=== PATIENT | female | born 2000 | race Two or more races ===

== ENCOUNTER 2024-12-17 16:47 | Emergency (ER) | payer MEDICAID, SELFPAY ==
[2024-12-17 16:48] VITALS: BMI 34.0
[2024-12-17 17:35] VITALS: BP 116/75; PULSE 75; RESP 16; TEMP 36.9; O2SAT 98
--- NOTE | 2024-12-17 17:47 | XR_ITS ---
Examination: Complete OB ultrasound, less than 14 weeks, transabdominal Date and time of exam: December 17, 2024 1046 hrs. Indications: Pelvic cramping this week Technique: Obstetrical ultrasound images less than 14 weeks performed via transabdominal imaging Findings: A normal shaped single intrauterine gestation is present in the uterus. pole 5.6 cm corresponds to 12 weeks 1 day gestational age Cardiac motion 167 BPM Ultrasonographic survey of visible and placental structures unremarkable. Amniotic fluid volume appears appropriate for this estimated gestational age. Right ovary 3.1 cm arterial flow. Left ovary obscured by bowel gas Impression: Viable intrauterine gestation 12 weeks 1 day
--- NOTE | 2024-12-17 17:49 | PD.EDRME ---
Rapid Medical Screening Exam RME Arrival date/time: 12/17/24 16:47 This is a 24-year-old female who presents to the emergency department with complaints of possible vaginal spotting, mild dysuria. She is 11 weeks of gestation. I have greeted and performed a focused initial assessment of this patient. Initial appropriate labs ordered at this time. A comprehensive ED assessment and evaluation of the patient and analysis of all test and completion of medical decision making process will be conducted by additional ED provider. Chief Complaint: Vaginal Bleeding Time Seen by Provider: 12/17/24 17:31 Vital signs: Vital Signs Temperature 98.5 F 12/17/24 17:35 Pulse Rate 75 12/17/24 17:35 Respiratory Rate 16 12/17/24 17:35 Blood Pressure 116/75 12/17/24 17:35 Pulse Oximetry (%) 98 12/17/24 17:35 Oxygen Delivery Method Room Air 12/17/24 17:35
[2024-12-17 18:29] LABS: Basophils # (Auto) 0.1 Thou/mm3 (0.0-0.2); Basophils % (Auto) 1 % (0-2.5); Eosinophils # (Auto) 0.4 Thou/mm3 (0.0-0.5); Eosinophils % (Auto) 3 % (0-10); Hematocrit 39.5 % (36.0-46.0); Hemoglobin 13.9 g/dL (12.0-16.0); Immature Granulocytes % (Auto) 0 % (0-0); Immature Granulocytes Auto 0.03 Thou/mm3 (0.00-0.00); Lymphocytes # (Auto) 3.8 Thou/mm3 (1.0-4.8); Lymphocytes % (Auto) 31 % (10-50); Mean Corpuscular HGB Conc 35.2 g/dl (31.0-37.0); Mean Corpuscular Hemoglobin 28.7 pg (25.0-35.0); Mean Corpuscular Volume 81 fL (80-100); Monocytes # (Auto) 0.5 Thou/mm3 (0.0-0.8); Monocytes % (Auto) 4 % (0-12); Neutrophils # (Auto) 7.3 Thou/mm3 (1.8-7.7); Neutrophils % (Auto) 60 % (37-80); Nucleated Red Blood Cell % 0 /100 WBC (0); Platelet Count 279 Thou/mm3 (140-440); RDW Standard Deviation 37.2 fL (36.4-46.3); Red Blood Count 4.85 Miln/mm3 (4.00-5.20); White Blood Count 12.2 Thou/mm3 (3.6-11.0)
[2024-12-17 18:58] LABS: Collection Type, Urine Clean Catch
[2024-12-17 19:00] LABS: Albumin, Serum 4.4 gm/dL (3.5-5.0); Albumin/Globulin Ratio 1.5 (1.2-2.2); Alkaline Phosphatase 58 U/L (46-116); Anion Gap 10 (7-16); Aspartate Amino Transferase 13 U/L (0-34); BUN/Creatinine Ratio 8 Ratio (12-20); Bilirubin,Total 0.3 mg/dL (0.3-1.2); Blood Urea Nitrogen 5 mg/dL (9-23); Calcium 10.1 mg/dL (8.3-10.6); Calcium (Corrected) 10.1 mg/dL (8.5-10.1); Carbon Dioxide 22.3 mMol/L (20.0-31.0); Chloride 103 mMol/L (98-107); Creatinine (Component) 0.6 mg/dL (0.6-1.3); Globulin 2.9 gm/dL (2.3-3.5); Glucose 78 mg/dL (74-106); Osmolality,Calculated 266 (275-295); Potassium 4.1 mMol/L (3.4-5.1); Sodium 135 mMol/L (136-145); Total Protein 7.3 gm/dL (5.7-8.2); eGFR > 60 See Note
[2024-12-17 19:07] LABS: Bacteria,Urine Rare; Bilirubin,Urine Negative (Negative); Blood,Urine Trace (Negative); Clarity,Urine Turbid (Clear/Hazy); Color,Urine Yellow (Lt Yel-Yel); Glucose, Urine Negative (Negative); Ketones,Urine 1+ (Negative); Leukocyte Esterase,Urine Positive (Negative); Nitrite,Urine Negative (Negative); Protein,Urine Negative (Neg - Trace); RBC,Urine 19 /hpf (0-3); Specific Gravity,Urine 1.022 (1.001-1.035); Squamous Epithelial Cell,Urine 11 /hpf (0-5); Urobilinogen,Urine Negative mg/dL (0.0-1.0); WBC,Urine 75 /hpf (0-5)
[2024-12-17 19:17] LABS: Alanine Aminotransferase 12 U/L (10-49)
[2024-12-17 19:29] LABS: Beta HCG,Quantitative 56679 mIU/mL (<5.0)
--- NOTE | 2024-12-17 23:28 | PD.EDVAGBL ---
ED OB Contraction Preg RMI/HPI General Chief complaint: Vaginal Bleeding Stated complaint: vaginal bleed, abdominal pain, 11 weeks preg. Time Seen by Provider: 12/17/24 17:31 Source: patient Arrival date/time: 12/17/24 16:47 Mode of arrival: ambulatory Limitations: no limitations RME / HPI RME / HPI Narrative: 12/17/24 16:47 This is a 24-year-old female who presents to the emergency department with complaints of possible vaginal spotting, mild dysuria. She is 11 weeks of gestation. I have greeted and performed a focused initial assessment of this patient. Initial appropriate labs ordered at this time. A comprehensive ED assessment and evaluation of the patient and analysis of all test and completion of medical decision making process will be conducted by additional ED provider. DR CERVANTES MAIN ED EVALUATION: 24-year-old female at 11 weeks gestation who presents to the emergency department with concerns of possible vaginal spotting and mild dysuria. She was referred by her primary care provider for evaluation of vaginal bleeding. The patient reports noticing a small amount of spotting and experiencing a mild burning sensation while urinating. Related Data Previous Rx's ?Medication ?Instructions ?Recorded nitrofurantoin 100 mg PO BID #14 caps 12/18/24 monohydrate/macrocrystals 100 mg capsule (Macrobid) Allergies Allergy/AdvReac Type Severity Reaction Status Date / Time No Known Allergies Allergy Verified 06/07/21 12:25 Review of Systems Review of Systems Systems Reviewed: All systems reviewed, normal except as documented Past Medical History Past Medical History NEUROLOGIC: Negative Neurological Disorders CARDIAC: Negative Cardiac Disorders or Congestive Heart Failure RESPIRATORY: Negative Chronic Obstructive Pulmonary Disease (COPD) GASTROINTESTINAL: Negative Gastrointestinal Disorders, Hepatitis or Colorectal Cancer GENITOURINARY: Negative Genitourinary Disorders or Renal Disease REPRODUCTIVE: Negative Breast Cancer MUSCULOSKELETAL: Negative Musculoskeletal Disorders or Bone Cancer ENDOCRINE: Negative Endocrine Disorders, Diabetes Mellitus Type 1 or Diabetes Mellitus Type 2 HEMATOLOGIC: Negative Blood Disorders OTHER HISTORY: Negative Hospitalization, Autoimmune Disease, Down Syndrome, Developmental Delay, Shingles, Falls, Blood Transfusions, Blood Transfusion Reaction, Anesthesia Reactions, Organ Transplant, Chemotherapy, Radiation Therapy, Hyperbaric Therapy, MRSA, VRSA, Vancomycin-Resistant Enterococci, Human Immunodeficiency Virus (HIV), Chicken Pox, Measles, Mumps, Rubella ([place] Measles), Pertussis, Clostridium Difficile, Cancer, Breast Cancer, Cervical Cancer, Colorectal Cancer, Lung Cancer or Ovarian Cancer Family History FAMILY HISTORY: Negative Family Psychiatric Problems, Family Respiratory Disorders, Family Cardiac Disorders, Family Gastrointestinal Problems, Family Cancer, Family Surgery or Family Anesthesia Reaction Surgical History SURGICAL: Negative Section or Organ Transplant Social History SMOKING STATUS: Never smoker ED Exam Narrative Physical exam: GENERAL APPEARANCE: alert and oriented x 4, well-developed, well-nourished, no acute distress VITALS: All vitals were reviewed and the pulse ox is 97% on room air, which is normal according to my interpretation. HEENT: Normocephalic, atraumatic; pupils equal, round, reactive to light; EOMI; mucous membranes pink, moist; oropharynx clear NECK: Supple LUNGS: CTABL; no wheezes, no rales, no rhonchi HEART: Regular rate, regular rhythm; normal S1, S2; no murmurs ABDOMEN: non distended; normal BS; soft, no tenderness, no guarding, no rebound; no masses, no organomegaly, no hernia BACK: no CVA tenderness EXTREMITIES: atraumatic; no edema NEUROLOGIC: awake; alert and oriented x4; cranial nerves II-XII grossly intact; no focal sensory or motor deficits PSYCHIATRIC: appropriate mood and affect SKIN: warm, dry, normal color; no rashes General Limitations: Present no limitations Course Quality Measures none Orders Category Date Time Status US OB <= 14 weeks fetus Stat Exams 12/17/24 17:47 Completed ABO/RH Type Stat Lab 12/17/24 18:09 Completed Beta HCG,Quantitative Stat Lab 12/17/24 18:09 Completed CBC Stat Lab 12/17/24 18:09 Completed Comprehensive Metabolic Panel Stat Lab 12/17/24 18:09 Completed Urinalysis Stat Lab 12/17/24 18:35 Completed Urine Culture Stat Lab 12/17/24 18:35 Received Nitrofurantoin Macro [Macrobid] Med 12/18/24 00:35 Discontinued 100 mg PO X1 ONE Vital Signs Vital signs: Vital Signs Temperature 98.5 F 12/17/24 17:35 Pulse Rate 75 12/17/24 17:35 Respiratory Rate 16 12/17/24 17:35 Blood Pressure 116/75 12/17/24 17:35 Pulse Oximetry (%) 98 12/17/24 17:35 Oxygen Delivery Method Room Air 12/17/24 17:35 Vaginal Bleeding MDM Narrative MDM Narrative: UA is contaminated however patient is symptomatic of UTI. Will treat with macrobid. Recommend patient call for urine culture results. Scribe Attestation: Lyndsay Ansleyangelashley Herreraang, am scribing for and in the presence of Dr. Cervantes. Provider Notation: Although this document has been carefully reviewed, there may still be some phonetic and other typographical errors. These errors are purely grammatical due to imperfections in the software program and should not be construed in any way to compromise the substance of the patient's medical care during this visit. Patient data External records reviewed:: [facility] previous records Clinical information provided by:: patient Social determinants that could affect healthcare access:: none Patient has the following chronic illnesses:: see PMH How is presenting disease/condition affected by chronic disease/condition?: uneffected by Evaluation data The following diagnostics were reviewed and interpreted by me:: lab results and radiology exam(s) Lab and/or radiology exams considered but not ordered:: na Interpretation Summary: Examination: Complete OB ultrasound, less than 14 weeks, transabdominal Date and time of exam: December 17, 2024 1046 hrs. Indications: Pelvic cramping this week Technique: Obstetrical ultrasound images less than 14 weeks performed via transabdominal imaging Findings: A normal shaped single intrauterine gestation is present in the uterus. pole 5.6 cm corresponds to 12 weeks 1 day gestational age Cardiac motion 167 BPM Ultrasonographic survey of visible and placental structures unremarkable. Amniotic fluid volume appears appropriate for this estimated gestational age. Right ovary 3.1 cm arterial flow. Left ovary obscured by bowel gas Impression: Viable intrauterine gestation 12 weeks 1 day Dictated By: Misael Sheth MD Medications / Prescriptions Medications or Prescriptions considered but not ordered:: na Medication administrations:: Medication Administration History Discontinued Medications Nitrofurantoin Macrocrystals (Nitrofurantoin Macro 100 Mg Capsule) 100 mg PO X1 ONE Stop: 12/18/24 00:36 Last Admin: 12/18/24 00:52 Dose: 100 mg Documented By: as above Consultations Consultation(s) initiated? (list below): No Diagnosis Vaginal Bleeding Differential Diagnosis: threatened , menometrorrhagia, incomplete and vaginal bleeding Most likely diagnosis given after review of the tests above:: Spotting affecting , UTI (urinary tract infection) Admission Indicated Admission indicated?: not indicated Admission Request Was there a request for admission?: No Disposition Plan Disposition Plan: Discharge Discharge Attestation Discharge Attestation: The patient and all family members were given an opportunity to ask questions and understood the discharge instructions. Discharge instructions specifically effects, indications for sooner follow up or return to the emergency department, and the expected course of current diagnosis. Patient condition: Stable Discharge Plan Plan Patient Disposition: HOME (Self Care) Prescriptions/Referrals Prescriptions/Med Rec: New nitrofurantoin monohyd/m-cryst [Macrobid] 100 mg capsule 100 mg PO BID Qty: 14 0RF Rx Instructions: must administer with a meal/food Referrals: Willem Whipple MD [Primary Care Provider] - In 1 week Problem List Clinical Impression: Spotting affecting , UTI (urinary tract infection) Patient/Caregiver Discharge Instructions Education Materials: Bleeding During Early , ED CYSTITIS Female Adult Print Language: Indonesian Stand Alone Forms: Sera Award Info., Patient Portal Info Letter
[2024-12-18] MEDS: NITROFURANTOIN MACRO 100 MG CAPSULE PO (00:52)
[2024-12-18 00:53] VITALS: BP 111/78; PULSE 93; RESP 17; TEMP 36.6; O2SAT 97
== END 2024-12-18 01:32 | disposition home or self-care (01) ==
PROVIDERS: Nurse Practitioner Primary Care; Emergency Provider Emergency Medicine; PCP Family Medicine
DX: O26.851 Spotting complicating pregnancy, first trimester (principal); O23.41 Unspecified infection of urinary tract in pregnancy, first trimester; Z3A.11 11 weeks gestation of pregnancy
CPT/HCPCS: 36415; 76801; 80053; 81001; 84702; 85025; 86900; 86901; 87077; 87086; 87186; 99284; A9270

== ENCOUNTER 2024-12-19 13:39 | Outpatient (AMB) | payer MEDICAID, SELFPAY ==
[2024-12-19 13:56] VITALS: BP 106/72; PULSE 85; RESP 14; TEMP 36.7; O2SAT 98; BMI 34.0
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
== END 2024-12-19 14:38 | disposition home or self-care (01) ==
LOC: HODSOBC 13:39
PROVIDERS: PCP Family Medicine; Supervising Provider Obstetrics & Gynecology; Visit Provider Obstetrics & Gynecology
DX: O09.891 Supervision of other high risk pregnancies, first trimester (principal); O23.11 Infections of bladder in pregnancy, first trimester; Z3A.12 12 weeks gestation of pregnancy
CPT/HCPCS: 99214; G0463

== ENCOUNTER 2025-01-23 14:29 | Outpatient (AMB) | payer MEDICAID, SELFPAY ==
[2025-01-23 14:39] VITALS: BP 128/86; PULSE 101; RESP 18; TEMP 35.7; O2SAT 98; BMI 34.7
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
== END 2025-01-23 15:22 | disposition home or self-care (01) ==
LOC: HODSOBC 14:29
PROVIDERS: PCP Family Medicine; Referring Provider Family Medicine; Supervising Provider Obstetrics & Gynecology; Visit Provider Obstetrics & Gynecology
DX: Z34.82 Encounter for supervision of other normal pregnancy, second trimester (principal); Z3A.17 17 weeks gestation of pregnancy
CPT/HCPCS: 99214; G0463

== ENCOUNTER 2025-02-22 14:08 | Outpatient (AMB) | payer MEDICAID, SELFPAY ==
[2025-02-22 14:54] VITALS: BP 131/85; PULSE 98; RESP 18; TEMP 36.2; O2SAT 98; BMI 35.8
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
== END 2025-02-22 15:45 | disposition home or self-care (01) ==
LOC: HODSOBC 14:08
PROVIDERS: PCP Family Medicine; Referring Provider Family Medicine; Supervising Provider Obstetrics & Gynecology; Visit Provider Obstetrics & Gynecology
DX: Z34.82 Encounter for supervision of other normal pregnancy, second trimester (principal); Z3A.21 21 weeks gestation of pregnancy; Z87.440 Personal history of urinary (tract) infections
CPT/HCPCS: 99214; G0463

== ENCOUNTER 2025-03-22 13:09 | Outpatient (AMB) | payer MEDICAID, SELFPAY ==
[2025-03-22 13:15] VITALS: BP 115/80; PULSE 98; RESP 17; TEMP 36.8; O2SAT 97; BMI 36.3
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
== END 2025-03-22 14:31 | disposition home or self-care (01) ==
LOC: HODSOBC 13:09
PROVIDERS: PCP Family Medicine; Referring Provider Family Medicine; Supervising Provider Obstetrics & Gynecology; Visit Provider Obstetrics & Gynecology
DX: Z34.82 Encounter for supervision of other normal pregnancy, second trimester (principal); Z3A.25 25 weeks gestation of pregnancy
CPT/HCPCS: 99213; G0463

== ENCOUNTER 2025-04-24 13:51 | Outpatient (AMB) | payer MEDICAID, SELFPAY ==
[2025-04-24 14:32] VITALS: BP 124/84; PULSE 98; RESP 17; TEMP 36; O2SAT 98; BMI 36.6
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
== END 2025-04-24 15:10 | disposition home or self-care (01) ==
LOC: HODSOBC 13:51
PROVIDERS: PCP Family Medicine; Referring Provider Family Medicine; Supervising Provider Obstetrics & Gynecology; Visit Provider Obstetrics & Gynecology
DX: Z34.93 Encounter for supervision of normal pregnancy, unspecified, third trimester (principal); Z3A.30 30 weeks gestation of pregnancy
CPT/HCPCS: 99213; G0463

== ENCOUNTER 2025-05-08 11:24 | Outpatient (AMB) | payer MEDICAID, SELFPAY ==
[2025-05-08 11:44] VITALS: BP 129/87; PULSE 90; RESP 17; TEMP 36.4; O2SAT 98; BMI 36.6
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
== END 2025-05-08 12:09 | disposition home or self-care (01) ==
LOC: HODSOBC 11:24
PROVIDERS: Supervising Provider Advanced Practice Midwife; Visit Provider Advanced Practice Midwife
DX: O09.93 Supervision of high risk pregnancy, unspecified, third trimester (principal); Z3A.32 32 weeks gestation of pregnancy; Z28.21 Immunization not carried out because of patient refusal
CPT/HCPCS: 99214; G0463

== ENCOUNTER 2025-05-22 13:49 | Outpatient (AMB) | payer MEDICAID, SELFPAY ==
[2025-05-22 14:00] VITALS: BP 130/87; PULSE 95; RESP 17; TEMP 36.3; O2SAT 97; BMI 36.9
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
== END 2025-05-22 14:39 | disposition home or self-care (01) ==
LOC: HODSOBC 13:49
PROVIDERS: Supervising Provider Advanced Practice Midwife; Visit Provider Advanced Practice Midwife
DX: O09.93 Supervision of high risk pregnancy, unspecified, third trimester (principal); Z3A.34 34 weeks gestation of pregnancy
CPT/HCPCS: 99214; G0463

== ENCOUNTER → 2025-05-31 | Outpatient (CLI) | payer MEDICAID, SELFPAY ==
--- NOTE | 2025-05-31 11:30 | XR_ITS ---
Examination: age Limited TECHNIQUE: Transabdominal sonographic images pelvis Date and time: May 31, 2025 1144 hours INDICATIONS: Size dates discrepancy FINDINGS: Viable intrauterine gestation cephalic presentation spine maternal right Amniotic fluid index 10.2 cm Cardiac motion 144 BPM Cervix 3.7 cm closed Estimated weight 2061 g Estimated age 33 weeks 6 days IMPRESSION: Viable intrauterine gestation cephalic presentation
== END | disposition home or self-care (01) ==
LOC: CDIM 11:24
PROVIDERS: Referring Provider Advanced Practice Midwife; Visit Provider Advanced Practice Midwife
DX: O26.849 Uterine size-date discrepancy, unspecified trimester (principal); Z3A.33 33 weeks gestation of pregnancy
CPT/HCPCS: 76815

== ENCOUNTER 2025-06-06 12:58 | Outpatient (AMB) | payer MEDICAID, SELFPAY ==
[2025-06-06 13:10] VITALS: BP 131/86; PULSE 105; RESP 17; TEMP 36.4; O2SAT 97; BMI 37.8
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
== END 2025-06-06 13:35 | disposition home or self-care (01) ==
LOC: HODSOBC 12:58
PROVIDERS: Supervising Provider Advanced Practice Midwife; Visit Provider Advanced Practice Midwife
DX: O09.93 Supervision of high risk pregnancy, unspecified, third trimester (principal); Z3A.36 36 weeks gestation of pregnancy
CPT/HCPCS: 99215; G0463

== ENCOUNTER 2025-06-06 15:13 | Outpatient (CLI) | payer MEDICAID, SELFPAY ==
[2025-06-06] VITALS (32 sets, daily range): BP systolic 0–136; BP diastolic 0–92; PULSE 63–90; RESP 18–99; TEMP 36.8; O2SAT 98–100; BMI 37.7
--- NOTE | 2025-06-06 15:28 | XR_ITS ---
Examination: Complete OB ultrasound greater than 14 weeks Date and time of exam: June 06, 2025 1559 hours INDICATIONS: Diagnosis intrauterine growth retardation Findings: Viable intrauterine single fetus with single amniotic sac presentation cephalic Cardiac motion 143 BPM Placenta anterior grade 3 Umbilical cord insertion 3 vessel seen Amniotic fluid index 7.6 cm spine maternal left Cervix 3.2 cm Ovaries obscured by bowel gas. Composite estimated gestational age based on BPD, head circumference, abdominal circumference, femur length is 35 weeks 3 days Estimated weight 2485 g. Survey of intracranial anatomy, spinal anatomy, abdominal anatomy, four-chamber heart performed with no abnormalities identified. Impression: Viable intrauterine gestation cephalic presentation.
--- NOTE | 2025-06-06 15:28 | XR_ITS ---
Examination: Biophysical profile, ultrasound Date and time of exam: June 06, 2025 1609 hours INDICATIONS: Diagnosis intrauterine growth retardation Technique: Multiple transabdominal sonographic images of the pelvis abdomen obtained. Attention is directed to the breathing movement, gross body movement, amniotic fluid volume and tone. Findings: Amniotic fluid index 7.9 cm Total biophysical profile is 8 of 8. breathing movement is 2. Gross body movement is 2. tone is 2. Qualitative amniotic fluid volume is 2 Impression: Biophysical profile is 8 of 8.
[2025-06-06 17:14] LABS: Basophils # (Auto) 0.1 Thou/mm3 (0.0-0.2); Basophils % (Auto) 0 % (0-2.5); Eosinophils # (Auto) 0.1 Thou/mm3 (0.0-0.5); Eosinophils % (Auto) 1 % (0-10); Hematocrit 30.5 % (36.0-46.0); Hemoglobin 10.1 g/dL (12.0-16.0); Immature Granulocytes Auto 0.11 Thou/mm3 (0.00-0.00); Lymphocytes # (Auto) 3.3 Thou/mm3 (1.0-4.8); Lymphocytes % (Auto) 24 % (10-50); Mean Corpuscular HGB Conc 33.1 g/dl (31.0-37.0); Mean Corpuscular Hemoglobin 27.3 pg (25.0-35.0); Mean Corpuscular Volume 82 fL (80-100); Monocytes # (Auto) 0.6 Thou/mm3 (0.0-0.8); Monocytes % (Auto) 5 % (0-12); Neutrophils # (Auto) 9.8 Thou/mm3 (1.8-7.7); Neutrophils % (Auto) 70 % (37-80); Nucleated Red Blood Cell # 0.00 Thou/mm3 (0.00-0.00); Nucleated Red Blood Cell % 0 /100 WBC (0); Platelet Count 208 Thou/mm3 (140-440); RDW Standard Deviation 37.4 fL (36.4-46.3); Red Blood Count 3.70 Miln/mm3 (4.00-5.20); White Blood Count 14.0 Thou/mm3 (3.6-11.0)
[2025-06-06 17:46] LABS: Alanine Aminotransferase < 7 U/L (10-49); Albumin, Serum 3.5 gm/dL (3.5-5.0); Albumin/Globulin Ratio 1.5 (1.2-2.2); Alkaline Phosphatase 129 U/L (46-116); Anion Gap 9 (7-16); Aspartate Amino Transferase 11 U/L (0-34); BUN/Creatinine Ratio 8 Ratio (12-20); Bilirubin,Total 0.2 mg/dL (0.3-1.2); Blood Urea Nitrogen < 5 mg/dL (9-23); Calcium 9.2 mg/dL (8.3-10.6); Calcium (Corrected) 9.6 mg/dL (8.5-10.1); Carbon Dioxide 23.6 mMol/L (20.0-31.0); Chloride 107 mMol/L (98-107); Creatinine (Component) 0.6 mg/dL (0.6-1.3); Estimated Creatinine Clearance 158.6 mL/min (>60); Globulin 2.4 gm/dL (2.3-3.5); Glucose 93 mg/dL (74-106); LDH (Lactate Dehydrogenase) 165 U/L (120-246); Osmolality,Calculated 276 (275-295); Potassium 4.0 mMol/L (3.4-5.1); Sodium 140 mMol/L (136-145); Total Protein 5.9 gm/dL (5.7-8.2); Uric Acid 3.9 mg/dL (3.1-7.8); eGFR > 60 See Note
[2025-06-06 17:48] LABS: Fibrinogen 519 mg/dL (175-375); INR 0.9 (0.9-1.3); Partial Thromboplastin Time 24.7 Seconds (22.0-36.0); Prothrombin Time 10.3 Seconds (9.0-12.2)
[2025-06-06 18:27] LABS: Collection Type, Urine Clean Catch; RBC,Urine 0 /hpf (0-3)
[2025-06-06 18:49] LABS: Bacteria,Urine 1+; Bilirubin,Urine Negative (Negative); Blood,Urine Negative (Negative); Clarity,Urine Clear (Clear/Hazy); Color,Urine Colorless (Lt Yel-Yel); Glucose, Urine Negative (Negative); Ketones,Urine Negative (Negative); Leukocyte Esterase,Urine Negative (Negative); Nitrite,Urine Negative (Negative); PH,Urine 7.0 (5.0-7.0); Protein,Urine Negative (Neg - Trace); Specific Gravity,Urine 1.004 (1.001-1.035); Squamous Epithelial Cell,Urine 1 /hpf (0-5); Urobilinogen,Urine Negative mg/dL (0.0-1.0); WBC,Urine 1 /hpf (0-5)
[2025-06-06 18:54] LABS: Creatinine,Random Urine 24 mg/dL (30-125); Protein Total, Random Urine < 6 mg/dL (1-14)
[2025-06-06] MEDS: BETAMET ACET/BETAMET NA PH (Celestone) 6 MG/ML VIAL 12 MG IM (19:30)
== END 2025-06-06 19:31 | disposition home or self-care (01) ==
LOC: S4S1 15:13 → S4SX 15:34
PROVIDERS: Referring Provider Advanced Practice Midwife; Visit Provider Obstetrics & Gynecology
DX: O36.5930 Maternal care for other known or suspected poor fetal growth, third trimester, not applicable or unspecified (principal); Z3A.35 35 weeks gestation of pregnancy
CPT/HCPCS: 36415; 59025; 76805; 76819; 80053; 81001; 82570; 83615; 84156; 84550; 85025; 85384; 85610; 85730; 96372; J0702

== ENCOUNTER 2025-06-07 19:14 | Observation (INO) | payer MEDICAID, SELFPAY ==
[2025-06-07 19:14] VITALS: BMI 37.7
[2025-06-07 19:32] VITALS: BP 120/69; PULSE 91; RESP 17; RESP 99; TEMP 37
[2025-06-07 19:33] VITALS: BP 120/69; PULSE 91
[2025-06-07] MEDS: BETAMET ACET/BETAMET NA PH (Celestone) 6 MG/ML VIAL 12 MG IM (20:07)
[2025-06-07 20:32] VITALS: BP 129/81; PULSE 72
== END 2025-06-07 20:16 | disposition home or self-care (01) ==
PROVIDERS: Admitting Provider Obstetrics & Gynecology; Visit Provider Obstetrics & Gynecology
DX: Z34.83 Encounter for supervision of other normal pregnancy, third trimester (principal); Z3A.36 36 weeks gestation of pregnancy
CPT/HCPCS: 59025; 59899; 96372; J0702

== ENCOUNTER 2025-06-10 23:48 | Observation (INO) | payer MEDICAID, SELFPAY ==
--- NOTE | 2025-06-10 15:34 | PC.NURSE ---
CALLED PT, ASKED IF CAN COME IN TODAY FOR IOL, PT STATES HER IS NOT AT HOME TO GIVE HER A RIDE, ASKING IF CAN COME LATER TONIGHT OR IF BED FOR SURE WILL BE AVAILABLE TOMORROW, ASKED PT TO CALL LATER TONIGHT IF BED IS STILL AVAILABLE, PT VERBALIZED UNDERSTANDING
[2025-06-11] VITALS (132 sets, daily range): BP systolic 114–153; BP diastolic 64–97; PULSE 69–113; RESP 14–18; TEMP 36.6–36.9; O2SAT 92–100; BMI 37.5
[2025-06-11 00:49] LABS: Basophils # (Auto) 0.1 Thou/mm3 (0.0-0.2); Basophils % (Auto) 0 % (0-2.5); Eosinophils # (Auto) 0.1 Thou/mm3 (0.0-0.5); Eosinophils % (Auto) 1 % (0-10); Hematocrit 32.5 % (36.0-46.0); Hemoglobin 10.8 g/dL (12.0-16.0); Immature Granulocytes Auto 0.14 Thou/mm3 (0.00-0.00); Lymphocytes # (Auto) 3.8 Thou/mm3 (1.0-4.8); Lymphocytes % (Auto) 22 % (10-50); Mean Corpuscular HGB Conc 33.2 g/dl (31.0-37.0); Mean Corpuscular Hemoglobin 27.3 pg (25.0-35.0); Mean Corpuscular Volume 82 fL (80-100); Monocytes # (Auto) 1.2 Thou/mm3 (0.0-0.8); Monocytes % (Auto) 7 % (0-12); Neutrophils # (Auto) 12.0 Thou/mm3 (1.8-7.7); Neutrophils % (Auto) 70 % (37-80); Nucleated Red Blood Cell # 0.00 Thou/mm3 (0.00-0.00); Nucleated Red Blood Cell % 0 /100 WBC (0); Platelet Count 281 Thou/mm3 (140-440); RDW Standard Deviation 37.3 fL (36.4-46.3); Red Blood Count 3.96 Miln/mm3 (4.00-5.20); White Blood Count 17.2 Thou/mm3 (3.6-11.0)
--- NOTE | 2025-06-11 00:56 | PC.NURSE ---
2242:Pt. called to Labor and Delivery unit, inquired about IOL/bed availability, pt. instructed to come in for IOL, pt. reports she will be in for IOL within the next thirty minutes.
[2025-06-11 01:02] LABS: Amphetamine/Metham Scrn,Ur OB Negative (Negative); Benzoylecgonine Screen, Ur OB Negative (Negative); Opiate Screen,Urine OB Negative (Negative); THC Screen,Urine OB Negative (Negative)
--- NOTE | 2025-06-11 01:02 | XR_ITS ---
Examination: visualization limited TECHNIQUE: Limited transabdominal sonographic images pelvis. Date and time: June 11, 2025, 0120 hours INDICATIONS: Unknown presentation. FINDINGS: Viable intrauterine gestation vertex presentation. Cardiac motion 127 BPM. Amniotic fluid index 13.5 cm Impression : Viable intrauterine gestation vertex presentation.
[2025-06-11 01:26] LABS: Syphilis Nonreactive (Nonreactive)
[2025-06-11 01:43] LABS: Fibrinogen 447 mg/dL (175-375); INR 0.9 (0.9-1.3); Partial Thromboplastin Time 23.1 Seconds (22.0-36.0); Prothrombin Time 10.3 Seconds (9.0-12.2)
[2025-06-11 02:17] LABS: Alanine Aminotransferase 7 U/L (10-49); Albumin, Serum 4.0 gm/dL (3.5-5.0); Albumin/Globulin Ratio 1.5 (1.2-2.2); Alkaline Phosphatase 148 U/L (46-116); Anion Gap 12 (7-16); Aspartate Amino Transferase 24 U/L (0-34); BUN/Creatinine Ratio 15 Ratio (12-20); Bilirubin,Total 0.3 mg/dL (0.3-1.2); Blood Urea Nitrogen 9 mg/dL (9-23); Calcium 9.8 mg/dL (8.3-10.6); Calcium (Corrected) 9.8 mg/dL (8.5-10.1); Carbon Dioxide 20.7 mMol/L (20.0-31.0); Chloride 104 mMol/L (98-107); Creatinine (Component) 0.6 mg/dL (0.6-1.3); Estimated Creatinine Clearance 158.2 mL/min (>60); Globulin 2.7 gm/dL (2.3-3.5); Glucose 71 mg/dL (74-106); Osmolality,Calculated 270 (275-295); Potassium 4.3 mMol/L (3.4-5.1); Sodium 137 mMol/L (136-145); Total Protein 6.7 gm/dL (5.7-8.2); Uric Acid 4.3 mg/dL (3.1-7.8); eGFR > 60 See Note
[2025-06-11 02:26] LABS: Collection Type, Urine Clean Catch
[2025-06-11 02:31] LABS: Bilirubin,Urine Negative (Negative); Blood,Urine Negative (Negative); Clarity,Urine Clear (Clear/Hazy); Color,Urine Lt-Yellow (Lt Yel-Yel); Glucose, Urine Negative (Negative); Ketones,Urine Negative (Negative); Leukocyte Esterase,Urine Negative (Negative); Nitrite,Urine Negative (Negative); PH,Urine 6.5 (5.0-7.0); Protein,Urine Negative (Neg - Trace); RBC,Urine < 1 /hpf (0-3); Specific Gravity,Urine 1.013 (1.001-1.035); Squamous Epithelial Cell,Urine 3 /hpf (0-5); Urobilinogen,Urine Negative mg/dL (0.0-1.0); WBC,Urine 1 /hpf (0-5)
[2025-06-11 02:38] LABS: Creatinine,Random Urine 70 mg/dL (30-125); Protein Total, Random Urine 16 mg/dL (1-14)
--- NOTE | 2025-06-11 02:48 | PRELIM_ITS ---
Obstetric ultrasound (limited). June 11, 2025 0120 hours Clinical history: IUGR, UNABLE TO DETERMINE PRESENTATION Comparison: None Findings: There is a gravid uterus with a live fetus in vertex presentation. cardiac activity is present at a heart rate of 127 beats per minute. Amniotic fluid is adequate (MITCHELL = 13.5 cm). Impression: Gravid uterus with a single live fetus in vertex presentation. Report Electronically Signed By: Luis Armando Landis 06/11/2025 2:47:39 AM [EST]
--- NOTE | 2025-06-11 03:22 | PD.LDHP ---
Documentation for date of: 06/11/25 OB Labor/Induct. HPI History of Present Illness Chief complaint: scheduled induction of labor : 2 Para: 1 Term pregnancies: 1 pregnancies: 0 Living children: 1 History of Abortions: Spontaneous and Elective: 0 History of Vaginal deliveries: 1 History of sections: No History of : No Date of last menstrual period: 09/27/24 LYNETTE: 07/04/25 Gestational Age (weeks): 36 Gestational Age (days): 5 Gestational age based on last menstrual period: 36 Indication for induction: other (IUGR) History of present illness: Patient presents for scheduled induction of labor. Indication: IUGR. She received a course of betamethasone previously. No regular/painful ctx. No LOF. No vaginal bleeding. Normal movement. History of Present Dating criteria: LMP confirmed by 1st trimester US (12/17/24: 12w1d, EDC 06/30/25) Adequate Care: Yes Abnormal ultrasound findings: See A/P section Narrative: Hx of 1 term uncomplicated Labs Maternal Blood Type: O Pos Labs: Positive: Rubella Titre, Negative: RPR, Hepatitis B, HIV, Chlamydia and Gonorrhea and Unknown: Herpes Type 1, Herpes Type 2, Group Beta Strep and Covid-19 Review of Systems Review of Systems Narrative Review of Systems: Review of Systems Systems Reviewed: All systems reviewed, normal except as documented Constitutional Constitutional: Denies body ache(s), Denies chills, Denies fever(s) and Denies headache(s) ENT Ears, Nose, Mouth, and Throat: Denies headache(s) and Denies vertigo Cardiovascular Cardiovascular: Denies chest pain, Denies palpitations, Denies dyspnea and Denies syncope Respiratory Respiratory: Denies cough, Denies dyspnea Gastrointestinal Gastrointestinal: Denies nausea and Denies vomiting Neurologic Neurologic: Denies convulsions, Denies headache(s), Denies other visual disturbances, Denies syncope and Denies vertigo Past Medical History Family History OTHER FAMILY HX: non-contributory Surgical History SURGICAL: Negative Section Social History SOCIAL: No tobacco/ETOH/illicit drug use Past Medical History Comments PMH COMMENT: Current BMI 37.6 Meds Home Medications and Allergies Home Medications ?Medication ?Instructions ?Recorded ?Confirmed ?Type vits no.130-ferrous fum 1 tab PO QDAY 06/07/25 06/11/25 History 27 mg iron-folic acid 800 mcg tablet ( Vitamin) Allergies Allergy/AdvReac Type Severity Reaction Status Date / Time No Known Allergies Allergy Verified 06/11/25 00:12 OB Exam Physical Exam Vital signs: Temp Pulse Resp BP 98.5 F 113 H 18 153/97 H 06/11/25 00:37 06/11/25 03:18 06/11/25 00:37 06/11/25 03:18 Narrative: General: well developed, well nourished, no acute distress, conversant Cardiac: normal heart rate Lungs: breathing without distress Abdomen: soft, gravid, non-tender, no rebound or guarding Extremities: no pain with palpation of calves Detailed Labor and Delivery Exam Dilation (cm): ft Effacement (%): 0 Cervix position: posterior station: -3 Consistency: firm Presentation: Vertex Membranes: intact Baseline heart rate: 130 monitor accelerations: 15x15 monitor 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: 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 (11-25) Contraction frequency (min): occasional OB Results Labs 06/10/25 23:55 06/10/25 23:55 Labs: Short CBC 06/10/25 Range/Units 23:55 WBC 17.2 H (3.6-11.0) Thou/mm3 Hgb 10.8 L (12.0-16.0) g/dL Hct 32.5 L (36.0-46.0) % Plt Count 281 D (140-440) Thou/mm3 BMP 06/10/25 23:55 Sodium 137 Potassium 4.3 Chloride 104 Carbon Dioxide 20.7 BUN 9 Creatinine 0.6 Glucose 71 L Calcium 9.8 Liver Function 06/10/25 Range/Units 23:55 Total Bilirubin 0.3 (0.3-1.2) mg/dL AST 24 (0-34) U/L ALT 7 L (10-49) U/L Alkaline Phosphatase 148 H (46-116) U/L Albumin 4.0 (3.5-5.0) gm/dL Urine 06/11/25 Range/Units 00:35 Urine Color Lt-Yellow (Lt Yel-Yel) Urine Clarity Clear (Clear/Hazy) Urine pH 6.5 (5.0-7.0) Ur Specific [place] 1.013 (1.001-1.035) Urine Protein Negative (Neg - Trace) Urine Glucose (UA) Negative (Negative) Impressions Impression: Examination: Complete OB ultrasound greater than 14 weeks Date and time of exam: June 11, 2025, 1327 hrs. Indications: Size dates discrepancy Findings: Viable intrauterine single fetus with single amniotic sac presentation cephalic Cardiac motion 140 BPM Placenta anterior grade 3. Umbilical cord insertion 3 vessel seen. Amniotic fluid index 7.9 cm spine posterior Cervix 4.3 cm Right ovary 3.1 cm arterial flow Left ovary obscured by bowel gas. Composite estimated gestational age based on BPD, head circumference, abdominal circumference, femur length is 35 weeks 1 day Estimated weight 2645 g. Survey of intracranial anatomy, spinal anatomy, abdominal anatomy, four-chamber heart performed with no abnormalities identified. Impression: Viable intrauterine gestation cephalic presentation Estimated gestational age 35 weeks 1 day Estimated weight 2645 g. Examination: Biophysical profile, ultrasound Date and time of exam: June 11, 2025, 1318 hrs. Indications: deceleration on stress testing today Technique: Multiple transabdominal sonographic images of the pelvis abdomen obtained. Attention is directed to the breathing movement, gross body movement, amniotic fluid volume and tone. Findings: Amniotic fluid index 7.7 cm Total biophysical profile is 8 of 8. breathing movement is 2. Gross body movement is 2. tone is 2. Qualitative amniotic fluid volume is 2 Impression: Biophysical profile is 8 of 8. OB Assessment & Plan Assessment and Plan (1) Encounter for induction of labor: Status: Acute Assessment and plan: Devon is a 24yo with SIUP at 36&5wk presenting for scheduled IOL for IUGR. SCE: ft/thick/high. Vitals wnl, benign exam. Reassuring assessment. Patient came in for induction in the middle of the night as previously scheduled in the office and had cervidil placed. Careful chart review and repeat growth ultrasound show: Dating: Patient has sure LMP of 09/27/2025 giving EDC 07/04/25 (making her 36w5d today, not 37w0d) She had an ultrasound in the ER on 12/17 which showed 12w1d giving EDC: 06/30/25 She then had an office ultrasound with Dr. Denney on 12/19 which showed 12w4d giving EDC: 06/29/25 Both early ultrasounds were <7 days discrepant from EDC by LMP, so dating by LMP is final. Ultrasound: 06/11/2025: 2645g = 21st percentile. BPP 06/02. MITCHELL 7.7cm. Cervix 4.3cm. 06/06/2025: 2485g = 19th percentile 05/31/2025: 2061g = 5th percentile Patient does not have diagnosis of IUGR at this time and she is 36w5d by good dating. I counseled patient regarding her dating and informed her that baby is growing normally, growth restriction resolved, and thus induction is not indicated at this time. Patient is happy to be able to continue the longer as she wishes to go into labor naturally if possible. Cervidil was removed and SCE repeated: ft/thick/high. An hour of prolonged monitoring was done after cervidil removal, which was entirely Category I. Plan: -Discharge patient home -Follow up tomorrow on L&D for NST -Follow up with PARISA Villalba on Thursday as scheduled -Return precautions given Chanell Degroot MD
--- NOTE | 2025-06-11 13:07 | XR_ITS ---
Examination: Biophysical profile, ultrasound Date and time of exam: June 11, 2025, 1318 hrs. Indications: deceleration on stress testing today Technique: Multiple transabdominal sonographic images of the pelvis abdomen obtained. Attention is directed to the breathing movement, gross body movement, amniotic fluid volume and tone. Findings: Amniotic fluid index 7.7 cm Total biophysical profile is 8 of 8. breathing movement is 2. Gross body movement is 2. tone is 2. Qualitative amniotic fluid volume is 2 Impression: Biophysical profile is 8 of 8.
--- NOTE | 2025-06-11 13:08 | XR_ITS ---
Examination: Complete OB ultrasound greater than 14 weeks Date and time of exam: June 11, 2025, 1327 hrs. Indications: Size dates discrepancy Findings: Viable intrauterine single fetus with single amniotic sac presentation cephalic Cardiac motion 140 BPM Placenta anterior grade 3. Umbilical cord insertion 3 vessel seen. Amniotic fluid index 7.9 cm spine posterior Cervix 4.3 cm Right ovary 3.1 cm arterial flow Left ovary obscured by bowel gas. Composite estimated gestational age based on BPD, head circumference, abdominal circumference, femur length is 35 weeks 1 day Estimated weight 2645 g. Survey of intracranial anatomy, spinal anatomy, abdominal anatomy, four-chamber heart performed with no abnormalities identified. Impression: Viable intrauterine gestation cephalic presentation Estimated gestational age 35 weeks 1 day Estimated weight 2645 g.
== END 2025-06-11 15:50 | disposition home or self-care (01) ==
PROVIDERS: Admitting Provider Obstetrics & Gynecology; PCP Family Medicine; Visit Provider Obstetrics & Gynecology
DX: O36.5930 Maternal care for other known or suspected poor fetal growth, third trimester, not applicable or unspecified (principal); Z3A.35 35 weeks gestation of pregnancy
CPT/HCPCS: 36415; 59899; 76805; 76815; 76819; 80053; 80307; 81001; 82570; 84156; 84550; 85025; 85384; 85610; 85730; 86780; 86850; 86900; 86901; G0378

== ENCOUNTER 2025-06-16 13:08 | Outpatient (AMB) | payer MEDICAID, SELFPAY ==
[2025-06-16 13:22] VITALS: BP 133/99; PULSE 104; RESP 20; TEMP 36.6; O2SAT 98; BMI 37.8
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
== END 2025-06-16 13:46 | disposition home or self-care (01) ==
LOC: HODSOBC 13:08
PROVIDERS: Supervising Provider Advanced Practice Midwife; Visit Provider Advanced Practice Midwife
DX: O09.93 Supervision of high risk pregnancy, unspecified, third trimester (principal); O36.5930 Maternal care for other known or suspected poor fetal growth, third trimester, not applicable or unspecified; Z3A.38 38 weeks gestation of pregnancy
CPT/HCPCS: 99214; G0463

== ENCOUNTER 2025-06-21 09:36 | Outpatient (AMB) | payer MEDICAID, SELFPAY ==
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
[2025-06-21 09:47] VITALS: BP 116/79; PULSE 90; RESP 18; TEMP 36.8; O2SAT 98; BMI 37.5
== END 2025-06-21 10:30 | disposition home or self-care (01) ==
LOC: HODSOBC 09:36
PROVIDERS: Supervising Provider Advanced Practice Midwife; Visit Provider Advanced Practice Midwife
DX: O09.93 Supervision of high risk pregnancy, unspecified, third trimester (principal); Z3A.38 38 weeks gestation of pregnancy
CPT/HCPCS: 99214; G0463

== ENCOUNTER 2025-06-29 08:40 | Outpatient (AMB) | payer MEDICAID, SELFPAY ==
[2025-06-29 08:47] VITALS: BP 135/91; PULSE 99; RESP 16; TEMP 36.2; O2SAT 98; BMI 38.1
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
== END 2025-06-29 09:34 | disposition home or self-care (01) ==
LOC: HODSOBC 08:40
PROVIDERS: Supervising Provider Advanced Practice Midwife; Visit Provider Advanced Practice Midwife
DX: O09.893 Supervision of other high risk pregnancies, third trimester (principal); O36.5930 Maternal care for other known or suspected poor fetal growth, third trimester, not applicable or unspecified; Z3A.39 39 weeks gestation of pregnancy
CPT/HCPCS: 99213; G0463

== ENCOUNTER 2025-06-30 13:05 | Inpatient (IN) | payer MEDICAID, SELFPAY ==
[2025-06-30] VITALS (59 sets, daily range): BP systolic 115–160; BP diastolic 68–103; PULSE 65–107; RESP 13–98; TEMP 36.5–36.6; O2SAT 97–100; BMI 38.3
--- NOTE | 2025-06-30 12:11 | XR_ITS ---
Examination: Biophysical profile, ultrasound Date and time of exam: June 30, 2025, 1214 hours INDICATIONS: -induced hypertension today Technique: Multiple transabdominal sonographic images of the pelvis abdomen obtained. Attention is directed to the breathing movement, gross body movement, amniotic fluid volume and tone. Findings: Amniotic fluid index 2.5 cm Total biophysical profile is 6 of 8. breathing movement is 2. Gross body movement is 2. tone is 2. Qualitative amniotic fluid volume is 0 Impression: Biophysical profile is 6 of 8.
--- NOTE | 2025-06-30 12:12 | XR_ITS ---
Examination: Complete OB ultrasound greater than 14 weeks Date and time of exam: June 30, 2025, 1224 hours INDICATIONS: -induced hypertension today on examination Findings: Viable intrauterine single fetus with single amniotic sac presentation cephalic Cardiac motion 147 BPM mild pericardial effusion. Placenta anterior grade 3 Umbilical cord insertion 3 vessel Amniotic fluid index 3.0 cm spine maternal right Cervix 3.5 cm Ovaries obscured by bowel gas Composite estimated gestational age based on BPD, head circumference, abdominal circumference, femur length is 36 weeks 4 days Estimated weight 2911.7 g. Survey of intracranial anatomy, spinal anatomy, abdominal anatomy, four-chamber heart performed. Impression: Viable intrauterine gestation cephalic presentation Amniotic fluid index 3.0 cm.
[2025-06-30 13:26] LABS: Basophils # (Auto) 0.1 Thou/mm3 (0.0-0.2); Basophils % (Auto) 1 % (0-2.5); Eosinophils # (Auto) 0.1 Thou/mm3 (0.0-0.5); Eosinophils % (Auto) 1 % (0-10); Hematocrit 29.5 % (36.0-46.0); Hemoglobin 9.8 g/dL (12.0-16.0); Immature Granulocytes Auto 0.14 Thou/mm3 (0.00-0.00); Lymphocytes # (Auto) 3.3 Thou/mm3 (1.0-4.8); Lymphocytes % (Auto) 26 % (10-50); Mean Corpuscular HGB Conc 33.2 g/dl (31.0-37.0); Mean Corpuscular Hemoglobin 26.9 pg (25.0-35.0); Mean Corpuscular Volume 81 fL (80-100); Monocytes # (Auto) 0.6 Thou/mm3 (0.0-0.8); Monocytes % (Auto) 5 % (0-12); Neutrophils # (Auto) 8.5 Thou/mm3 (1.8-7.7); Neutrophils % (Auto) 67 % (37-80); Nucleated Red Blood Cell # 0.00 Thou/mm3 (0.00-0.00); Nucleated Red Blood Cell % 0 /100 WBC (0); Platelet Count 217 Thou/mm3 (140-440); RDW Standard Deviation 38.7 fL (36.4-46.3); Red Blood Count 3.64 Miln/mm3 (4.00-5.20); White Blood Count 12.8 Thou/mm3 (3.6-11.0)
[2025-06-30] MEDS: LABETALOL 100 MG TABLET PO ×2 (13:41→15:45)
[2025-06-30 14:08] LABS: Syphilis Nonreactive (Nonreactive)
[2025-06-30 14:11] LABS: Fibrinogen 494 mg/dL (175-375); INR 0.9 (0.9-1.3); Partial Thromboplastin Time 25.1 Seconds (22.0-36.0); Prothrombin Time 10.1 Seconds (9.0-12.2)
[2025-06-30 14:12] LABS: Collection Type, Urine Clean Catch
[2025-06-30 14:18] LABS: Bacteria,Urine 2+; Bilirubin,Urine Negative (Negative); Blood,Urine Negative (Negative); Color,Urine Lt-Yellow (Lt Yel-Yel); Glucose, Urine Negative (Negative); Ketones,Urine Negative (Negative); Leukocyte Esterase,Urine Positive (Negative); Nitrite,Urine Negative (Negative); PH,Urine 6.5 (5.0-7.0); Protein,Urine 1+ (Neg - Trace); RBC,Urine 3 /hpf (0-3); Specific Gravity,Urine 1.009 (1.001-1.035); Squamous Epithelial Cell,Urine 12 /hpf (0-5); Urobilinogen,Urine Negative mg/dL (0.0-1.0); WBC,Urine 17 /hpf (0-5)
[2025-06-30 14:20] LABS: Clarity,Urine Hazy (Clear/Hazy)
[2025-06-30 14:21] LABS: Alanine Aminotransferase < 7 U/L (10-49); Albumin, Serum 3.3 gm/dL (3.5-5.0); Albumin/Globulin Ratio 1.4 (1.2-2.2); Alkaline Phosphatase 164 U/L (46-116); Anion Gap 13 (7-16); Aspartate Amino Transferase < 10 U/L (0-34); BUN/Creatinine Ratio 9 Ratio (12-20); Bilirubin,Total 0.2 mg/dL (0.3-1.2); Blood Urea Nitrogen 6 mg/dL (9-23); Calcium 9.6 mg/dL (8.3-10.6); Calcium (Corrected) 10.2 mg/dL (8.5-10.1); Carbon Dioxide 21.2 mMol/L (20.0-31.0); Chloride 105 mMol/L (98-107); Creatinine (Component) 0.7 mg/dL (0.6-1.3); Estimated Creatinine Clearance 137.1 mL/min (>60); Globulin 2.3 gm/dL (2.3-3.5); Glucose 91 mg/dL (74-106); LDH (Lactate Dehydrogenase) 189 U/L (120-246); Osmolality,Calculated 275 (275-295); Potassium 3.7 mMol/L (3.4-5.1); Sodium 139 mMol/L (136-145); Total Protein 5.6 gm/dL (5.7-8.2); eGFR > 60 See Note
[2025-06-30 14:29] LABS: Uric Acid 6.9 mg/dL (3.1-7.8)
[2025-06-30 14:29] LABS: Amphetamine/Metham Scrn,Ur OB Negative (Negative); Benzoylecgonine Screen, Ur OB Negative (Negative); Opiate Screen,Urine OB Negative (Negative); THC Screen,Urine OB Negative (Negative)
[2025-06-30 14:56] LABS: Creatinine,Random Urine 74 mg/dL (30-125); Protein Total, Random Urine 56 mg/dL (1-14)
[2025-06-30] MEDS: RINGERS LACTATED 1000 ML 1,000 ML 100 ML IV (16:44)
--- NOTE | 2025-06-30 17:20 | ESHP_ITS ---
Documentation for date of: 06/30/25 OB Labor/Induct. HPI History of Present Illness Chief complaint: IOL : 2 Para: 1 Term pregnancies: 1 pregnancies: 0 Living children: 1 History of Abortions: Spontaneous and Elective: 0 History of Vaginal deliveries: 1 History of sections: No History of : No Date of last menstrual period: 09/27/24 LYNETTE: 07/04/25 Gestational Age (weeks): 39 Gestational Age (days): 3 Gestational age based on last menstrual period: 39 Indication for induction: nonreassuring APT History of present illness: 24-year-old 2 para 1 for induction of labor. Patient has been followed at [facility] since 12 weeks . Her last period September 27, 2024. Estimated due date July 04, 2025. So she is 39 and 3 today. Patient was previously admitted May for induction of labor because of a UFR and sent home undelivered. Since then patient has been getting weekly NST BPP did not have evolved and reactive with normal fluid. Today she comes for her NST BPP and MITCHELL was. BPP 6 out of 8. And EFW 2911. Patient denies social habits. Denies surgery. Denies chronic illness. Reports movement and occasional contractions. Blood pressures had also been elevated but not in severe range. History of Present Dating criteria: LMP confirmed by 1st trimester US Adequate Care: Yes Ultrasounds: normal 1st trimester US and normal mid trimester US Obstetrical complications: gestational hypertension Medical complications: none Labs Labs: Positive: Rubella Titre, Negative: RPR, Hepatitis B, HIV, Chlamydia, Gonorrhea and Group Beta Strep and Unknown: Herpes Type 1, Herpes Type 2 and Covid-19 Review of Systems Review of Systems Systems Reviewed: All systems reviewed, normal except as documented Past Medical History Surgical History SURGICAL: Negative Section Meds Home Medications and Allergies Home Medications ?Medication ?Instructions ?Recorded ?Confirmed ?Type vits no.130-ferrous fum 1 tab PO QDAY 5 06/30/25 History 27 mg iron-folic acid 800 mcg tablet ( Vitamin) Allergies Allergy/AdvReac Type Severity Reaction Status Date / Time No Known Allergies Allergy Verified 06/29/25 08:48 OB Exam Physical Exam Vital signs: Temp Pulse Resp BP Pulse Ox O2 Del Method 97.9 F 94 17 160/103 H 100 Room Air 06/30/25 14:50 06/30/25 17:10 06/30/25 14:50 06/30/25 17:10 06/30/25 17:19 06/30/25 14:50 Narrative: Normal heart rate and rhythm. Lungs are clear. Blood pressures 130/90. Gravid abdomen. Gynecoid pelvis. Estimated weight 5-1/2 pounds. Vaginal exam on admission external cervical os was 2 to 3 cm. But the internal os is closed. 50% effaced. -3-4. Vertex. Bag water intact. On admission heart rate is category 1 with accelerations and moderate variability and irregular contractions Detailed Labor and Delivery Exam Dilation (cm): closed Effacement (%): 50 Cervix position: posterior station: -3 Consistency: soft Presentation: Vertex Cervical ripeness score: 2 Membranes: intact Baseline heart rate: 140 monitor accelerations: 15x15 monitor 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: None [facility] variability: Moderate (11-25) Contraction frequency (min): irreg Contraction duration (sec): 40 Tachysystole: No Contraction intensity: Mild OB Results Labs 06/30/25 12:24 06/30/25 12:24 Labs: Short CBC 06/30/25 Range/Units 12:24 WBC 12.8 H (3.6-11.0) Thou/mm3 Hgb 9.8 L (12.0-16.0) g/dL Hct 29.5 L (36.0-46.0) % Plt Count 217 D (140-440) Thou/mm3 BMP 06/30/25 12:24 Sodium 139 Potassium 3.7 Chloride 105 Carbon Dioxide 21.2 BUN 6 L Creatinine 0.7 Glucose 91 Calcium 9.6 Liver Function 06/30/25 Range/Units 12:24 Total Bilirubin 0.2 L (0.3-1.2) mg/dL AST < 10 (0-34) U/L ALT < 7 L (10-49) U/L Alkaline Phosphatase 164 H (46-116) U/L Albumin 3.3 L (3.5-5.0) gm/dL Urine 06/30/25 Range/Units 13:45 Urine Color Lt-Yellow (Lt Yel-Yel) Urine Clarity Hazy (Clear/Hazy) Urine pH 6.5 (5.0-7.0) Ur Specific [place] 1.009 (1.001-1.035) Urine Protein 1+ A (Neg - Trace) Urine Glucose (UA) Negative (Negative) OB Assessment & Plan Assessment and Plan (1) IUGR (intrauterine growth restriction) affecting care of mother: Status: Acute (2) Normal labor and delivery: Status: Acute Additional Plan Induction method: per misoprostol protocol Plan: induction, anticipate NVD and consult MD shahid (1) IUGR (intrauterine growth restriction) affecting care of mother Qualifiers: Fetus number: single or unspecified fetus Trimester: third trimester Q ualified Code(s): O36.5930 - Maternal care for other known or suspected poor growth, third trimester, not applicable or unspecified
--- NOTE | 2025-06-30 17:26 | PD.LDPN ---
Documentation for date of: 06/30/25 OB Labor Progress Note Pain Control Pain control: tolerating well Pelvic Exam Dilation (cm): closed Effacement (%): 50 station: -3 Amniotic membrane status: Intact Contractions Monitor mode: External Contraction frequency: irreg Contraction phase: Resting Contraction intensity: Mild Status status: Category ll Comments: recurrent variable and late decels. 1 epesode of prolonged decel. moderate variability Assessment and Plan Assessment: induction ongoing Comments: prepare for c/s CNM Management MD Consulted (describe details below): Yes
[2025-06-30] MEDS: METOCLOPRAMIDE INJ 5 MG/ML VIAL 2 ML 10 MG IVP (17:29)
[2025-06-30] MEDS: FAMOTIDINE INJ 10 MG/ML VIAL 2 ML 20 MG IV (17:30)
[2025-06-30] MEDS: ceFAZolin/D5W 2 GM IV 2 GM/100 ML BAG IV (17:30)
--- NOTE | 2025-06-30 18:28 | PD.GYNPROC ---
Operative Note - MARINE INSULATOR Procedure Date of procedure: 06/30/25 Procedure Performed: Primary low-transverse section Indication: 24-year-old 2 para 1 at 39 weeks and 3 days, category 2 heart rate tracing remote from delivery New onset gestational hypertension Oligohydramnios Anesthesia type: Spinal Procedure description: Informed consent was obtained and the patient was taken to the operating room. Identity was confirmed by double identifiers and she was placed on the operating table. Spinal anesthesia was administered and she was positioned in the supine position. The abdomen and perineum were prepped in the usual sterile fashion and a Reyes catheter was placed to continuous drainage. Sterile drapes were applied. The incision site was tested for adequacy of anesthesia. A Pfannenstiel skin incision was made with a scalpel and carried to the subcutaneous fat up to the rectus fascia. The rectus fascia was incised on either side of the midline and the incisions were extended bilaterally. The fascia was gently dissected off the ventral surface of the rectus muscle both superiorly and inferiorly. The rectus bellies were gently in the midline and the peritoneum was identified and entered bluntly using the surgeon's finger. The peritoneal opening was now stretched to create an adequate opening for access to the uterus. Maldonado O-ring retractor was placed for adequate visualization. The anterior surface of the uterus was palpated. The bladder reflection was identified and a Kate Snell low transverse uterine incision was made in the lower uterine segment taking care to avoid the bladder. Uterine entry was accomplished bluntly and the opening was stretched to create adequate room. The amniotic membranes were now ruptured and clear amniotic fluid was released. The fetus was noted to be in the vertex position. The head was gently elevated out of the maternal pelvis and the rest of the shoulders and body were delivered by gentle fundal pressure. Umbilical cord was doubly clamped, divided and the infant was handed over to the waiting team. Cord gas samples were obtained. The placenta was delivered by gentle traction on the umbilical cord. The interior of the uterus was now thoroughly cleaned of all blood and debris and membranes. The hysterotomy angles were grasped by a pair of Allis clamps and the hysterotomy was closed using 1 Monocryl suture in 2 layers. The first layer was used to approximate the muscle in a running locked fashion, the second layer was used to approximate the thickness of the myometrium and uterine serosa in an imbricated manner. Once the repair was completed the hysterotomy was inspected and noted to be adequately hemostatic. The hysterotomy was once again inspected and hemostasis was noted to be satisfactory. The Maldonado retractor was now removed. The peritoneal edges were re approximated. The rectus muscles were re approximated. The rectus fascia was now repaired using 0 Vicryl suture in a running fashion. The subcutaneous layer was now copiously irrigated using warm normal saline. All bleeding points were cauterized using the Bovie. The subcutaneous fat was closed using 3-0 Vicryl. The skin was closed using 4-0 Monocryl in a subcuticular fashion. The skin was cleaned and a sterile dressing was applied. The patient was now undraped, the abdomen and back were thoroughly cleaned and she was transferred to the recovery room in a stable and awake condition. The patient tolerated the entire procedure well. No complications were encountered. All instrument, sponge and lap counts were correct x2. Estimated blood loss (ml): 650 Complications: none Surgical staff Operation Date: 06/30/25 17:15 <No data on this case meets the specified criteria> Diagnosis Discharge Diagnosis (1) IUGR (intrauterine growth restriction) affecting care of mother: Status: Acute (2) Encounter for supervision of high risk in third trimester, antepartum: Status: Acute (3) Gestational hypertension: Status: Acute (4) delivery delivered: Status: Acute Problem List Completed Was Problem List Reviewed/Reconciled?: Yes (1) IUGR (intrauterine growth restriction) affecting care of mother Qualifiers: Fetus number: single or unspecified fetus Trimester: third trimester Qualified Code(s): O36.5930 - Maternal care for other known or suspected poor growth, third trimester, not applicable or unspecified
--- NOTE | 2025-06-30 18:30 | PD.LDDELS ---
Data ([place]) Data Hx Section: No : 2 Term: 1 : 0 Livin Abortions: Spontaneous & Theraputic: 0 Delivery Data ([place]) Delivery Data Delivered by: TIESHA Anesthesia Type Anesthesia type: Spinal
[2025-06-30] MEDS: OXYTOCIN in NS 20 units 20 UNIT/1,000 ML BAG 125 UNIT IV (19:19)
[2025-06-30] MEDS: KETOROLAC INJ 30 MG/ML VIAL IVP (19:53)
[2025-06-30] MEDS: RINGERS LACTATED 1000 ML 1,000 ML 125 ML IV (19:54)
[2025-06-30] MEDS: LABETALOL 100 MG TABLET 200 MG PO (20:58)
[2025-07-01] VITALS (8 sets, daily range): BP systolic 120–133; BP diastolic 65–86; PULSE 66–93; RESP 14–21; TEMP 36.3–36.9; O2SAT 95–99
[2025-07-01] MEDS: LABETALOL 100 MG TABLET 200 MG PO ×2 (03:56→12:07)
[2025-07-01] MEDS: OXYTOCIN in NS 20 units 20 UNIT/1,000 ML BAG 125 UNIT IV (03:58)
[2025-07-01 05:43] LABS: Basophils # (Auto) 0.1 Thou/mm3 (0.0-0.2); Basophils % (Auto) 0 % (0-2.5); Eosinophils # (Auto) 0.0 Thou/mm3 (0.0-0.5); Eosinophils % (Auto) 0 % (0-10); Hematocrit 28.0 % (36.0-46.0); Hemoglobin 9.1 g/dL (12.0-16.0); Immature Granulocytes Auto 0.11 Thou/mm3 (0.00-0.00); Lymphocytes # (Auto) 3.0 Thou/mm3 (1.0-4.8); Lymphocytes % (Auto) 21 % (10-50); Mean Corpuscular HGB Conc 32.5 g/dl (31.0-37.0); Mean Corpuscular Hemoglobin 26.9 pg (25.0-35.0); Mean Corpuscular Volume 83 fL (80-100); Monocytes # (Auto) 0.5 Thou/mm3 (0.0-0.8); Monocytes % (Auto) 4 % (0-12); Neutrophils # (Auto) 10.3 Thou/mm3 (1.8-7.7); Neutrophils % (Auto) 74 % (37-80); Nucleated Red Blood Cell # 0.00 Thou/mm3 (0.00-0.00); Nucleated Red Blood Cell % 0 /100 WBC (0); Platelet Count 182 Thou/mm3 (140-440); RDW Standard Deviation 40.1 fL (36.4-46.3); Red Blood Count 3.38 Miln/mm3 (4.00-5.20); White Blood Count 14.0 Thou/mm3 (3.6-11.0)
[2025-07-01] MEDS: KETOROLAC INJ 30 MG/ML VIAL IVP ×2 (05:58→16:48)
--- NOTE | 2025-07-01 08:28 | PD.LDPPPRG ---
Subjective Subjective Interval history: Delivery type: Patient doing well this morning. No acute complaints. Ambulating, tolerating p.o. and voiding without difficulty. HTN/Pre-Eclampsia screen: No chest pain, shortness of breath, headache, visual changes, epigastric or right upper quadrant pain. Breast-feeding, lochia diminishing. Bowel: Flatus+/ BM+ Exam Vital Signs Temp Pulse Resp BP Pulse Ox O2 Del Method 97.8 F 85 14 122/81 98 Room Air 07/01/25 03:40 07/01/25 03:56 07/01/25 03:40 07/01/25 03:56 07/01/25 03:40 07/01/25 03:40 Constitutional Constitutional: no acute distress Routine HEENT Exam Head: Present normocephalic and atraumatic Eye: Present EOMI and PERRL ENT: Present mucous membranes moist Routine Neck Exam Neck: Present supple and trachea midline Routine Respiratory Exam Respiratory: Present chest non-tender, lungs clear, normal breath sounds and no resp distress Routine Cardiovascular Exam Cardiovascular: Present RRR Routine Abdominal Exam Abdominal: Present soft and normoactive bowel sounds Routine Extremities Exam Extremities: Present full ROM Routine Skin Exam Skin: Present intact, dry and warm Routine Neurological Exam Neurological: Present alert, oriented X3 and CN II-XII intact Routine Psychiatric Exam Psychiatric: Present normal affect and normal thought process Objective Labs 07/01/25 05:00 06/30/25 12:24 Labs: Laboratory Results - last 24 hr 06/30/25 06/30/25 06/30/25 12:24 13:45 13:50 WBC 12.8 H RBC 3.64 L Hgb 9.8 L Hct 29.5 L MCV 81 MCH 26.9 MCHC 33.2 RDW Std Deviation 38.7 Plt Count 217 D Neut % (Auto) 67 Lymph % (Auto) 26 [place] % (Auto) 5 Eos % (Auto) 1 Baso % (Auto) 1 Neut # (Auto) 8.5 H Lymph # (Auto) 3.3 [place] # (Auto) 0.6 Eos # (Auto) 0.1 Baso # (Auto) 0.1 Immature Gran # (Auto) 0.14 H Absolute Nucleated RBC 0.00 Immature Gran % 1 H Nucleated RBC % 0 PT 10.1 INR 0.9 APTT 25.1 Fibrinogen 494 H Sodium 139 Potassium 3.7 Chloride 105 Carbon Dioxide 21.2 Anion Gap 13 BUN 6 L Creatinine 0.7 Estim Creat Clear Calc 137.1 eGFR > 60 BUN/Creatinine Ratio 9 L Glucose 91 Calculated Osmolality 275 Uric Acid 6.9 Calcium 9.6 Corrected Calcium 10.2 H Total Bilirubin 0.2 L AST < 10 ALT < 7 L Alkaline Phosphatase 164 H Lactate Dehydrogenase 189 Total Protein 5.6 L Albumin 3.3 L Globulin 2.3 Albumin/Globulin Ratio 1.4 Ur Collection Type Clean Catch Urine Color Lt-Yellow Urine Clarity Hazy Urine pH 6.5 Ur Specific [place] 1.009 Urine Protein 1+ A Urine Glucose (UA) Negative Urine Ketones Negative Urine Blood Negative Urine Nitrite Negative Urine Bilirubin Negative Urine Urobilinogen (Auto) Negative Ur Leukocyte Esterase Positive Urine RBC 3 Urine WBC 17 H Ur Squamous Epith Cells 12 H Urine Bacteria 2+ A Ur Random Creatinine 74 U Random Total Protein 56 H Urine Opiates Screen Negative U Amphetamin/Meth Scrn Negative U Cocaine Metab Screen Negative U Marijuana (THC) Screen Negative Syphilis Serology Nonreactive Blood Type Antibody Screen Crossmatch Blood Bank Wristband ID 06/30/25 07/01/25 14:00 05:00 WBC 14.0 H RBC 3.38 L Hgb 9.1 L Hct 28.0 L MCV 83 MCH 26.9 MCHC 32.5 RDW Std Deviation 40.1 Plt Count 182 D Neut % (Auto) 74 Lymph % (Auto) 21 [place] % (Auto) 4 Eos % (Auto) 0 Baso % (Auto) 0 Neut # (Auto) 10.3 H Lymph # (Auto) 3.0 [place] # (Auto) 0.5 Eos # (Auto) 0.0 Baso # (Auto) 0.1 Immature Gran # (Auto) 0.11 H Absolute Nucleated RBC 0.00 Immature Gran % 1 H Nucleated RBC % 0 PT INR APTT Fibrinogen Sodium Potassium Chloride Carbon Dioxide Anion Gap BUN Creatinine Estim Creat Clear Calc eGFR BUN/Creatinine Ratio Glucose Calculated Osmolality Uric Acid Calcium Corrected Calcium Total Bilirubin AST ALT Alkaline Phosphatase Lactate Dehydrogenase Total Protein Albumin Globulin Albumin/Globulin Ratio Ur Collection Type Urine Color Urine Clarity Urine pH Ur Specific [place] Urine Protein Urine Glucose (UA) Urine Ketones Urine Blood Urine Nitrite Urine Bilirubin Urine Urobilinogen (Auto) Ur Leukocyte Esterase Urine RBC Urine WBC Ur Squamous Epith Cells Urine Bacteria Ur Random Creatinine U Random Total Protein Urine Opiates Screen U Amphetamin/Meth Scrn U Cocaine Metab Screen U Marijuana (THC) Screen Syphilis Serology Blood Type O Positive Antibody Screen NEGATIVE Crossmatch See Detail Blood Bank Wristband ID Yes Assessment & Plan Problem List (1) IUGR (intrauterine growth restriction) affecting care of mother: Status: Acute (2) Encounter for supervision of high risk in third trimester, antepartum: Status: Acute (3) Gestational hypertension: Status: Acute (4) delivery delivered: Status: Acute Assessment and plan: 1. Continue routine /post-op care 2. Labs reviewed, cbc appropriate 3. Remove dressing/Reyes 4. Encourage to ambulate, shower 5. Encourage PO intake, breast feeding Time Spent With Patient Time: Total time spent is greater than 50% in coordination of care (as documented) at patient's floor/unit and/or counseling patient:
--- NOTE | 2025-07-01 08:29 | OBDSUM_ITS ---
Data ([place]) Data Hx Section: No : 2 Term: 1 : 0 Livin Abortions: Spontaneous & Theraputic: 0 Delivery Data ([place]) Labor Data Initiation of labor: Induction Induction/Augmentation Agent: Cytotec-PO and Artificial ROM ROM date: 06/30/25 ROM time: 18:03 Amniotic membrane rupture type: Artificial Amniotic fluid description: Light Meconium Delivery Data [place] delivery date: 06/30/25 delivery time: 18:03 Placenta delivery date: 06/30/25 Placenta delivery time: 18:04 Delivered by: TIESHA Delivery nurse: DANY Kunz [place] nurse: DANY [employer] Manager at delivery: Yes (Jasvir) Support person(s) at delivery: Sister of Mother Delivery Method Delivery method: Low Transverse Presentation: Vertex Anesthesia Type Anesthesia Type: Spinal Anesthesia type: Spinal Placenta Placenta delivery description: Manual Removal Cord blood sent to lab: Yes cord blood collection: Cord Blood Type, Arterial Cord Blood Gas and Venous Cord Blood Gas [place] Data ([facility]) Data order: 1 's gender: Male Identification band number: [id number] weight (gms): 2720 g Weight (pounds): 5 lbs and 15.9 ozs length: 49.53 cm 1 minute: 9 5 minutes: 9
[2025-07-01] MEDS: DOCUSATE SOD 100 MG CAPSULE PO (08:59)
--- NOTE | 2025-07-01 09:37 | PD.LDPPPRG ---
Subjective Subjective Interval history: Feeling better today. Getting up and moving around. Mild pain. Patient has been up to void already denies dizziness. Denies headache. Denies blurred vision. Denies epigastric pain Exam Vital Signs Temp Pulse Resp BP Pulse Ox O2 Del Method 97.8 F 85 14 122/81 98 Room Air 07/01/25 03:40 07/01/25 03:56 07/01/25 03:40 07/01/25 03:56 07/01/25 03:40 07/01/25 03:40 Narrative Exam Vital signs are stable. Afebrile. Blood pressure 11/16/1980. Normal heart rate and rhythm. Lungs are clear. Color is pink. Breasts are soft. Abdomen is nontender to palpation at this time. Uterus is at umbilicus. Firm. Small lochia. Negative Homans' sign. 2+ DTRs. Patient voided at 100 cc clear urine after the Reyes was DC'd. Telfa dressing is covering the incision. No leakage of serous fluid or blood Objective Labs 07/01/25 05:00 06/30/25 12:24 Labs: Laboratory Results - last 24 hr 06/30/25 06/30/25 06/30/25 12:24 13:45 13:50 WBC 12.8 H RBC 3.64 L Hgb 9.8 L Hct 29.5 L MCV 81 MCH 26.9 MCHC 33.2 RDW Std Deviation 38.7 Plt Count 217 D Neut % (Auto) 67 Lymph % (Auto) 26 [place] % (Auto) 5 Eos % (Auto) 1 Baso % (Auto) 1 Neut # (Auto) 8.5 H Lymph # (Auto) 3.3 [place] # (Auto) 0.6 Eos # (Auto) 0.1 Baso # (Auto) 0.1 Immature Gran # (Auto) 0.14 H Absolute Nucleated RBC 0.00 Immature Gran % 1 H Nucleated RBC % 0 PT 10.1 INR 0.9 APTT 25.1 Fibrinogen 494 H Sodium 139 Potassium 3.7 Chloride 105 Carbon Dioxide 21.2 Anion Gap 13 BUN 6 L Creatinine 0.7 Estim Creat Clear Calc 137.1 eGFR > 60 BUN/Creatinine Ratio 9 L Glucose 91 Calculated Osmolality 275 Uric Acid 6.9 Calcium 9.6 Corrected Calcium 10.2 H Total Bilirubin 0.2 L AST < 10 ALT < 7 L Alkaline Phosphatase 164 H Lactate Dehydrogenase 189 Total Protein 5.6 L Albumin 3.3 L Globulin 2.3 Albumin/Globulin Ratio 1.4 Ur Collection Type Clean Catch Urine Color Lt-Yellow Urine Clarity Hazy Urine pH 6.5 Ur Specific [place] 1.009 Urine Protein 1+ A Urine Glucose (UA) Negative Urine Ketones Negative Urine Blood Negative Urine Nitrite Negative Urine Bilirubin Negative Urine Urobilinogen (Auto) Negative Ur Leukocyte Esterase Positive Urine RBC 3 Urine WBC 17 H Ur Squamous Epith Cells 12 H Urine Bacteria 2+ A Ur Random Creatinine 74 U Random Total Protein 56 H Urine Opiates Screen Negative U Amphetamin/Meth Scrn Negative U Cocaine Metab Screen Negative U Marijuana (THC) Screen Negative Syphilis Serology Nonreactive Blood Type Antibody Screen Crossmatch Blood Bank Wristband ID 06/30/25 07/01/25 14:00 05:00 WBC 14.0 H RBC 3.38 L Hgb 9.1 L Hct 28.0 L MCV 83 MCH 26.9 MCHC 32.5 RDW Std Deviation 40.1 Plt Count 182 D Neut % (Auto) 74 Lymph % (Auto) 21 [place] % (Auto) 4 Eos % (Auto) 0 Baso % (Auto) 0 Neut # (Auto) 10.3 H Lymph # (Auto) 3.0 [place] # (Auto) 0.5 Eos # (Auto) 0.0 Baso # (Auto) 0.1 Immature Gran # (Auto) 0.11 H Absolute Nucleated RBC 0.00 Immature Gran % 1 H Nucleated RBC % 0 PT INR APTT Fibrinogen Sodium Potassium Chloride Carbon Dioxide Anion Gap BUN Creatinine Estim Creat Clear Calc eGFR BUN/Creatinine Ratio Glucose Calculated Osmolality Uric Acid Calcium Corrected Calcium Total Bilirubin AST ALT Alkaline Phosphatase Lactate Dehydrogenase Total Protein Albumin Globulin Albumin/Globulin Ratio Ur Collection Type Urine Color Urine Clarity Urine pH Ur Specific [place] Urine Protein Urine Glucose (UA) Urine Ketones Urine Blood Urine Nitrite Urine Bilirubin Urine Urobilinogen (Auto) Ur Leukocyte Esterase Urine RBC Urine WBC Ur Squamous Epith Cells Urine Bacteria Ur Random Creatinine U Random Total Protein Urine Opiates Screen U Amphetamin/Meth Scrn U Cocaine Metab Screen U Marijuana (THC) Screen Syphilis Serology Blood Type O Positive Antibody Screen NEGATIVE Crossmatch See Detail Blood Bank Wristband ID Yes Assessment & Plan Problem List (1) IUGR (intrauterine growth restriction) affecting care of mother: Status: Acute (2) Encounter for supervision of high risk in third trimester, antepartum: Status: Acute (3) Gestational hypertension: Status: Acute (4) delivery delivered: Status: Acute Assessment Comment Assessment comment: 24 hr PO Plan Comment Plan Comment: Continue labetalol 300 3 times daily. Encourage ambulation and movement. Increase fluids. Medicate as needed for pain. Continue to monitor vital signs and blood pressure. Observe for signs and symptoms of preeclampsia. Time Spent With Patient Time: Total time spent is greater than 50% in coordination of care (as documented) at patient's floor/unit and/or counseling patient:
[2025-07-01] MEDS: HYDROcodone/APAP 5/325 TABLET 1 TAB PO (21:23)
[2025-07-02 02:34] VITALS: BP 136/86; PULSE 84
[2025-07-02] MEDS: SIMETHICONE 80 MG CHEW PO (02:34)
[2025-07-02] MEDS: HYDROcodone/APAP 5/325 TABLET 1 TAB PO ×2 (02:34→16:02)
[2025-07-02] MEDS: LABETALOL 100 MG TABLET 200 MG PO ×2 (02:34→10:45)
[2025-07-02 03:44] VITALS: BP 133/86; PULSE 88; RESP 18; TEMP 36.9; O2SAT 98
[2025-07-02] MEDS: DOCUSATE SOD 100 MG CAPSULE PO (08:27)
[2025-07-02] MEDS: IBUPROFEN TAB 400 MG TABLET 800 MG PO (08:27)
[2025-07-02 08:30] VITALS: BP 126/80; PULSE 98; RESP 16; TEMP 36.7; O2SAT 98
--- NOTE | 2025-07-02 08:36 | PD.LDPPPRG ---
Subjective Subjective Interval history: Delivery type: for category 2 strip, doing well Patient doing well this morning. No acute complaints. Ambulating, tolerating p.o. and voiding without difficulty. HTN/Pre-Eclampsia screen: No chest pain, shortness of breath, headache, visual changes, epigastric or right upper quadrant pain. Breast-feeding, lochia diminishing. Bowel: Flatus+/ BM+ Exam Vital Signs Temp Pulse Resp BP Pulse Ox O2 Del Method 98.4 F 88 18 133/86 H 98 Room Air 07/02/25 03:44 07/02/25 03:44 07/02/25 03:44 07/02/25 03:44 07/02/25 03:44 07/02/25 03:44 Constitutional Constitutional: no acute distress Routine HEENT Exam Head: Present normocephalic and atraumatic Eye: Present EOMI and PERRL ENT: Present mucous membranes moist Routine Neck Exam Neck: Present supple and trachea midline Routine Respiratory Exam Respiratory: Present chest non-tender, lungs clear, normal breath sounds and no resp distress Routine Cardiovascular Exam Cardiovascular: Present RRR Routine Abdominal Exam Abdominal: Present soft and normoactive bowel sounds Routine Extremities Exam Extremities: Present full ROM Routine Skin Exam Skin: Present intact, dry and warm Routine Neurological Exam Neurological: Present alert, oriented X3 and CN II-XII intact Routine Psychiatric Exam Psychiatric: Present normal affect and normal thought process Objective Labs 07/01/25 05:00 06/30/25 12:24 Assessment & Plan Problem List (1) IUGR (intrauterine growth restriction) affecting care of mother: Status: Acute (2) Encounter for supervision of high risk in third trimester, antepartum: Status: Acute (3) Gestational hypertension: Status: Acute (4) delivery delivered: Status: Acute Assessment and plan: PPD/POD#2 1. Continue routine care 2. Transition to PO meds. 3. Encourage to ambulate/ breast-feed 4. Anticipate discharge home today. Time Spent With Patient Time: Total time spent is greater than 50% in coordination of care (as documented) at patient's floor/unit and/or counseling patient:
--- NOTE | 2025-07-02 08:39 | ESDS_ITS ---
DS: Providers Provider Date of admission: 06/30/25 13:05 Primary care physician: Physician No Primary/Family Admitting Provider: Elle Villalba CNM Attending Provider on Admission: Mason Schwartz MD Consults: 06/30/25 18:27 Referral Routine Comment: Attending Provider on DC: Mason Schwartz MD Discharging Provider: Mason Schwartz MD DS: Diagnosis Discharge Diagnosis (1) delivery delivered: Status: Acute (2) Gestational hypertension: Status: Acute Problem List Completed Was Problem List Reviewed/Reconciled?: Yes Summary/Hosp Course Brief History: 24-year-old 2 para 1 for induction of labor. Patient has been followed at [facility] since 12 weeks . Her last period September 27, 2024. Estimated due date July 04, 2025. So she is 39 and 3 today. Patient was previously admitted May for induction of labor because of a UFR and sent home undelivered. Since then patient has been getting weekly NST BPP did not have evolved and reactive with normal fluid. Today she comes for her NST BPP and MITCHELL was. BPP 6 out of 8. And EFW 2911. Patient denies social habits. Denies surgery. Denies chronic illness. Reports movement and occasional contractions. Blood pressures had also been elevated but not in severe range. Peripartum Data Delivery Method: Low Transverse Procedures: Procedures Operation Date: 06/30/25 17:15 Actual Procedure Side Surgeon p in OB Not Applicable Mason Schwartz MD Time Spent with Patient Time attestation: Total time spent providing and/or coordinating discharge services: Exam Vital Signs Temp Pulse Resp BP Pulse Ox O2 Del Method 98.4 F 88 18 133/86 H 98 Room Air 07/02/25 03:44 07/02/25 03:44 07/02/25 03:44 07/02/25 03:44 07/02/25 03:44 07/02/25 03:44 Discharge Plan Plan Patient Disposition: HOME (Self Care) Patient condition on transfer: Stable Prescriptions/Referrals Prescriptions/Med Rec: New hydrocodone-acetaminophen 5-325 mg Tablet 1 tab PO Q6HR MDD 4 PRN (Reason: Patient rated pain 9 to 10) 5 Days Qty: 20 0RF ibuprofen 400 mg Tablet 800 mg PO Q8HR PRN (Reason: Pain Scale 4-6 (Moderate) 10 Days Qty: 40 0RF docusate sodium [Stool Softener] 100 mg capsule 100 mg PO QDAY 30 Days Qty: 30 0RF Continued Vitamin 27 mg iron- 800 mcg tablet 1 tab PO QDAY Referrals: Mason Schwartz MD [Physician, [employer]] No Primary/Family,Physician [Primary Care Provider] Patient/Caregiver Discharge Instructions Meds to Beds: Yes Discharge Activity: activity as tolerated Education Materials: After a , C Section Dc Print Language: [place] Stand Alone Forms: Sera Award Info., Patient Portal Info Letter, DC from Surgery Planned Discharge Date 07/02/25
[2025-07-02 10:45] VITALS: BP 135/86; PULSE 99
--- NOTE | 2025-07-02 11:26 | PC.CC ---
Devon Cooper is a 24-year-old female admitted for labor and delivery care. [employer] made contact with Pt at bedside to complete ob assessment and discuss discharge disposition. Role and reason for the contact was explained to Pt. Demographic information was verified. Pt identified her father Curt Cooper [phone] as surrogate decision maker. Pt is independent with all ADLs, no source of DME. PCP is [facility]. At time of discharge patient will return home, family will provide transportation. Mother plans on breast feeing, has car seat, and all supplies for baby. Mother denies any use of substance, no DV, no CPS. Mother reports support system provided by extended family. Discharge Plan: Home Next of Kin: father Curt Cooper [phone] PCP: [facility]
[2025-07-02 12:25] VITALS: BP 119/81; PULSE 83; RESP 16; TEMP 36.8; O2SAT 99
== END 2025-07-02 17:10 | disposition home or self-care (01) | DRG 540 ==
LOC: S4S1 13:24 → S4SX 13:24 → S4NX 18:22 → S4SX 07-03 06:06
PROVIDERS: Admitting Provider Advanced Practice Midwife; Referring Provider Advanced Practice Midwife; Visit Provider Obstetrics & Gynecology
PROC: 10D00Z1 Extraction of Products of Conception, Low, Open Approach (ICD-10-PCS; CPT 59514; principal; 2025-06-30 17:00)
DX: O13.4 Gestational [pregnancy-induced] hypertension without significant proteinuria, complicating childbirth (principal); O36.5930 Maternal care for other known or suspected poor fetal growth, third trimester, not applicable or unspecified; O41.03X0 Oligohydramnios, third trimester, not applicable or unspecified; Z3A.39 39 weeks gestation of pregnancy; Z37.0 Single live birth; O76 Abnormality in fetal heart rate and rhythm complicating labor and delivery; O77.0 Labor and delivery complicated by meconium in amniotic fluid
CPT/HCPCS: 36415; 59025; 59409; 76805; 76819; 80053; 80307; 81001; 82570; 83615; 84156; 84550; 85025; 85384; 85610; 85730; 86780; 86850; 86900; 86901; 86923; 94762; A4217; A4314; A4649; J0689; J1885; J2250; J2274; J2371; J2590; J2704; J2765; J3010; J3490; J7120; A9270; J2270

== ENCOUNTER 2025-07-14 15:26 | Outpatient (AMB) | payer MEDICAID, SELFPAY ==
[2025-07-14 15:48] VITALS: BP 137/95; PULSE 102; RESP 16; TEMP 36.2; O2SAT 98
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
== END 2025-07-14 16:49 | disposition home or self-care (01) ==
LOC: HODSOBC 15:26
PROVIDERS: Supervising Provider Obstetrics & Gynecology; Visit Provider Obstetrics & Gynecology
DX: Z39.2 Encounter for routine postpartum follow-up (principal); O13.5 Gestational [pregnancy-induced] hypertension without significant proteinuria, complicating the puerperium; Z39.1 Encounter for care and examination of lactating mother; Z30.014 Encounter for initial prescription of intrauterine contraceptive device
CPT/HCPCS: 99213; G0463

== ENCOUNTER 2025-08-11 14:08 | Outpatient (AMB) | payer MEDICAID, SELFPAY ==
[2025-08-11 14:17] VITALS: BP 123/88; PULSE 107; RESP 18; TEMP 36.2; O2SAT 98; BMI 35.9
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
== END 2025-08-11 14:44 | disposition home or self-care (01) ==
LOC: HODSOBC 14:08
PROVIDERS: Supervising Provider Obstetrics & Gynecology; Visit Provider Obstetrics & Gynecology
DX: Z39.2 Encounter for routine postpartum follow-up (principal); Z39.1 Encounter for care and examination of lactating mother; Z30.09 Encounter for other general counseling and advice on contraception; O10.93 Unspecified pre-existing hypertension complicating the puerperium; Z79.899 Other long term (current) drug therapy
CPT/HCPCS: 99213; G0463

== ENCOUNTER 2025-08-28 09:13 | Outpatient (AMB) | payer MEDICAID, SELFPAY ==
[2025-08-28 09:46] VITALS: BP 135/91; PULSE 115; RESP 18; TEMP 36.2; O2SAT 98; BMI 36.0
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
== END 2025-08-28 10:09 | disposition home or self-care (01) ==
LOC: HODSOBC 09:13
PROVIDERS: Supervising Provider Obstetrics & Gynecology; Visit Provider Obstetrics & Gynecology
DX: Z30.014 Encounter for initial prescription of intrauterine contraceptive device (principal); O13.5 Gestational [pregnancy-induced] hypertension without significant proteinuria, complicating the puerperium
CPT/HCPCS: 99213; G0463